=== PATIENT | female | born 2000 | race Caucasian/White ===

== ENCOUNTER 2021-10-29 13:31 | Emergency (ER) | payer OTHER ==
[~2021-10-29] VITALS: Ht 172.7 cm; Wt 65.4 kg
[2021-10-29] MEDS ORDERED: ONDANSETRON ODT 4 MG TAB.RAPDIS PO ONE (14:30)
[2021-10-29] MEDS ORDERED: IV NORMAL SALINE 1,000ML 1,000 ML IV ONE (15:45)
[2021-10-29] MEDS ORDERED: ONDANSETRON PF 4 MG/2 ML VIAL. IVP ONE (15:45)
--- NOTE | 2021-10-29 15:53 | PHYS DOC ---
Past History Additional Past Medical Histor: SLEEP APNEA (LIZA VIDES APRN) Past Surgical History: No Surgical History (LIZA VIDES APRN) Alcohol Use: None (LIZA VIDES APRN) General Adult EDM: Chief Complaint: NAUSEA/VOMITING/DIARRHEA HPI: HPI: Patient is a 21-year-old female who presents to the emergency department for chronic nausea, vomiting, diarrhea for 10 years. She is also reporting umbilical abdominal pain. Patient reports that she has had decreased appetite. She reports vomiting 2 times today. No diarrhea today. She believes that the nausea and vomiting is associated with her anxiety and depression. She does take anxiety and depression medications but has discontinued her hydroxyzine because she stated that that caused her to not eat at all. Patient does not have a primary care provider. Patient does have a history of suicidal ideation but is not currently suicidal and she [facility]. Patient denies any blood in her vomit, fevers, cough, shortness of breath, loss of taste or smell, sick exposures, recent travel. (LIZA VIDES APRN) Review of Systems: Review of Systems: Constitutional: negative unless reported in HPI Eyes: negative unless reported in HPI HENT: negative unless reported in HPI Respiratory: negative unless reported in HPI Cardiovascular: negative unless reported in HPI GI: negative unless reported in HPI : negative unless reported in HPI Musculoskeletal: negative unless reported in HPI Integument: negative unless reported in HPI Neurologic: negative unless reported in HPI Endocrine: negative unless reported in HPI Lymphatic: negative unless reported in HPI Psychiatric: negative unless reported in HPI (LIZA VIDES APRN) Current Medications: Current Meds: Current Medications Medications (Trade) Dose Ordered Sig/Regine Start Time Stop Time Status Last Admin Dose Admin Ondansetron HCl (Zofran Odt) 4 mg 1X ONCE 10/29/21 14:30 10/29/21 15:36 DC Ondansetron HCl (Zofran) 4 mg 1X ONCE 10/29/21 15:45 10/29/21 15:46 UNV Sodium Chloride 1,000 ml @ 1,000 mls/hr 1X ONCE 10/29/21 15:45 10/29/21 16:44 UNV (LIZA VIDES APRN) Allergies: Allergies: Allergies Coded Allergies Type Severity Reaction Last Updated Verified No Known Drug Allergies 10/29/21 No (LIZA VIDES APRN) Physical Exam: PE: Constitutional: Well developed, well nourished, no acute distress, non-toxic appearance. [] HENT: Normocephalic, atraumatic, bilateral external ears normal, oropharynx moist, no oral exudates, nose normal. [] Eyes: PERRL, EOMI, conjunctiva normal, no discharge. [] Neck: Normal range of motion, no tenderness, supple, no stridor. [] Cardiovascular:Heart rate tachycardic rhythm, no murmur [] Lungs & Thorax: Bilateral breath sounds clear to auscultation [] Abdomen: Bowel sounds normal, soft, umbilical abdominal tenderness with palpation, no abdominal rigidity or guarding, negative Carbajal sign, no masses, no pulsatile masses. [] Skin: Warm, dry, no erythema, no rash. [] Back: No tenderness, no CVA tenderness. [] Extremities: No tenderness, no cyanosis, no clubbing, ROM intact, no edema. [] Neurologic: Alert and oriented X 3, normal motor function, normal sensory function, no focal deficits noted. [] Psychologic: Affect normal, judgement normal, mood normal. [] (LIZA VIDES APRN) Current Patient Data: Labs: Laboratory Tests Test 10/29/21 15:49 10/29/21 16:05 10/29/21 16:17 10/29/21 16:19 Urine Collection Type Clean catch Urine Color Yellow Urine Clarity Clear Urine pH 5.5 Urine Specific [place] >=1.030 Urine Protein Neg Urine Glucose (UA) Neg mg/dL Urine Ketones (Stick) 15 mg/dL Urine Blood Mod Urine Nitrite Neg Urine Bilirubin Neg Urine Urobilinogen Dipstick 0.2 mg/dL Urine Leukocyte Esterase Neg Urine RBC 3-5 /HPF Urine WBC 0 /HPF Urine Squamous Epithelial Cells Many /LPF Urine Bacteria 0 /HPF Influenza Type A (Rapid) Negative Influenza Type B (Rapid) Negative SARS-CoV-2 Antigen (Rapid) Negative Bedside Urine HCG, Qualitative hcg negative White Blood Count 6.1 x10^3/uL Red Blood Count 4.12 x10^6/uL Hemoglobin 12.0 g/dL Hematocrit 36.2 % Mean Corpuscular Volume 88 fL Mean Corpuscular Hemoglobin 29 pg Mean Corpuscular Hemoglobin Concent 33 g/dL Red Cell Distribution Width 14.9 % Platelet Count 163 x10^3/uL Neutrophils (%) (Auto) 75 % Lymphocytes (%) (Auto) 19 % Monocytes (%) (Auto) 6 % Eosinophils (%) (Auto) 0 % Basophils (%) (Auto) 0 % Neutrophils # (Auto) 4.6 x10^3uL Lymphocytes # (Auto) 1.2 x10^3/uL Monocytes # (Auto) 0.4 x10^3/uL Eosinophils # (Auto) 0.0 x10^3/uL Basophils # (Auto) 0.0 x10^3/uL Sodium Level 136 mmol/L Potassium Level 3.5 mmol/L Chloride Level 103 mmol/L Carbon Dioxide Level 24 mmol/L Anion Gap 9 Blood Urea Nitrogen 12 mg/dL Creatinine 0.8 mg/dL Estimated GFR (Cockcroft-Gault) 88.9 BUN/Creatinine Ratio 15 Glucose Level 89 mg/dL Calcium Level 8.4 mg/dL Total Bilirubin 0.5 mg/dL Aspartate Amino Transf (AST/SGOT) 23 U/L Alanine Aminotransferase (ALT/SGPT) 27 U/L Alkaline Phosphatase 73 U/L Total Protein 7.1 g/dL Albumin 3.8 g/dL Albumin/Globulin Ratio 1.2 Lipase 50 U/L Current Medications Medications (Trade) Dose Ordered Sig/Regine Route PRN Reason Start Time Stop Time Status Last Admin Dose Admin Ondansetron HCl (Zofran Odt) 4 mg 1X ONCE PO 10/29/21 14:30 10/29/21 15:36 DC Sodium Chloride 1,000 ml @ 1,000 mls/hr 1X ONCE IV 10/29/21 15:45 10/29/21 16:44 DC 10/29/21 16:02 Ondansetron HCl (Zofran) 4 mg 1X ONCE IVP 10/29/21 15:45 10/29/21 15:50 DC 10/29/21 16:04 Iohexol (Omnipaque 300 Mg/ml) 75 ml 1X ONCE IV 10/29/21 16:00 10/29/21 16:24 DC 10/29/21 16:36 Info (Do NOT chart on this entry -- for MONITORING) 1 each PRN DAILY PRN MC SEE COMMENTS 10/29/21 16:30 10/31/21 16:29 Vital Signs: Vital Signs Date Time Temp Pulse Resp B/P (MAP) Pulse Ox O2 Delivery O2 Flow Rate FiO2 10/29/21 15:22 98.2 107 18 119/66 (83) 100 Room Air (LIZA VIDES APRN) EKG: EKG: [] (LIZA VIDES APRN) Radiology/Procedures: Radiology/Procedures: []PROCEDURE: CT ABD PELV W/ IV CONTRST ONLY CT ABDOMEN+PELVIS W History: Reason: abdominal pain, n/v/d / Spl. Instructions: / History: Technique: After the administration of intravenous contrast, CT imaging was performed of the abdomen and pelvis. Multiplanar images are reviewed. Exposure: One or more of the following individualized dose reduction techniques were utilized for this examination: 1. Automated exposure control 2. Adjustment of the mA and/or kV according to patient size 3. Use of iterative reconstruction technique. Comparison: None Findings: Lower chest: No consolidation or pleural effusion. Abdomen and pelvis: The liver, spleen, adrenal glands, pancreas and gallbladder are unremarkable. No biliary ductal dilatation. No renal calculus. No hydronephrosis. Normal appearance of the urinary bladder. Decompressed regions of the mid to distal colon. Normal appendix. No evidence of bowel obstruction. No pathologic lymphadenopathy. No ascites. IUD noted within the upper endometrial canal. Bones: No pathologic osseous lesions. Impression: 1. No acute abdominal or pelvic pathology. Electronically signed by: Palmer Gamino DO (10/29/2021 4:52 PM) [facility] DICTATED AND SIGNED BY: PALMER GAMINO DO DATE: 10/29/21 1643 CC: LIZA VIDES APRN; PCP,NO ~MTH0 0 (LIZA VIDES APRN) Heart Score: C/O Chest Pain: N/A Risk Factors: Risk Factors: DM, Current or recent (<one month) smoker, HTN, HLP, family history of CAD, obesity. Risk Scores: Score 0 - 3: 2.5% MACE over next 6 weeks - Discharge Home Score 4 - 6: 20.3% MACE over next 6 weeks - Admit for Clinical Observation Score 7 - 10: 72.7% MACE over next 6 weeks - Early Invasive Strategies (LIZA VIDES APRN) Course & Med Decision Making: Course & Med Decision Making Pertinent Labs and Imaging studies reviewed. (See chart for details) Patient presents to the emergency department for chronic nausea, vomiting, diarrhea as well as local abdominal pain. Patient has a history of anxiety and depression and believes that these symptoms are linked with her anxiety and depression. She does not have a primary care provider. Work-up in the ER consisted of blood work, urinalysis, CT imaging of abdomen and pelvis. She also had Covid and influenza testing. Patient is mildly tachycardic and this was treated with IV fluids. She was also treated with nausea medication. Patient had no active vomiting while in the emergency department. Her blood work and urinalysis were unremarkable. CT scan of abdomen and pelvis did not show any acute findings. Her Covid and influenza test was negative. She was evaluated by member of the psychiatric assessment team due to her previous thoughts of suicide with her anxiety and depression. She was given resources and a safety plan was developed. Patient was also provided information for a primary care provider in clinic so that she can follow-up with them about her chronic nausea and vomiting. She will be discharged home with nausea medication. I discussed with patient all findings and diagnostic testing as well as the need to follow-up with PCP for further evaluation and treatment or return to the ER if any new or worsening symptoms. Strict return precautions were also discussed at length. Patient voiced understanding and agreement with the plan. Patient is hemodynamically stable at the time of disposition. (LIZA VIDES APRN) Dragon Disclaimer: Dragon Disclaimer: This electronic medical record was generated, in whole or in part, using a voice recognition dictation system. (LIZA VIDES APRN) Attending Co-Sign The patient was seen and interviewed as well as examined at the bedside. The chart was reviewed. The case was discussed. Agree with the plan of care. (MAGY BRASWELL DO) Departure Departure: Impression: Primary Impression: Nausea & vomiting Qualified Codes: R11.2 - Nausea with vomiting, unspecified Additional Impression: Anxiety Disposition: 01 HOME / SELF CARE / HOMELESS Condition: GOOD Referrals: PCP,NO (PCP) Patient Instructions: Nausea and Vomiting, Suicidal Feelings, How to Help Yourself Additional Instructions: You were seen in the emergency department today for chronic nausea, vomiting, diarrhea and abdominal pain. Your blood work, urinalysis and imaging of your abdomen showed no acute findings. Your influenza and Covid test was negative. It is likely that the symptoms are associated with your anxiety and depression. Please continue to take your medications as prescribed. You were evaluated by member of our psychiatric assessment team and you were given resources and a safety plan was developed. Please refer to these outpatient services if you have any thoughts of wanting to harm yourself. You are being discharged home with nausea medication you can take this as needed. Increase your fluids and rest. Avoid eating any spicy, greasy or fatty foods over the next 48 hours. We recommend a brat diet which includes bananas, rice, applesauce and toast. If you do not have a primary care provider, you can follow-up with one of the providers given to you today. I would contact them on Sunday to set up a follow-up visit. Return to the emergency department if you develop worsening of your abdominal pain, intractable nausea or vomiting, blood in your stools or vomit, high fevers refractory to treatment, suicidal or homicidal ideation. Scripts Ondansetron (ONDANSETRON ODT) 4 Mg Tab.rapdis 1 TAB PO PRN Q6-8HRS for nausea for 7 Days, #28 TAB 0 Refills Prov: LIZA VIDES APRN 10/29/21 LIZA VIDES APRN Oct 29, 2021 15:53 MAGY BRASWELL DO Oct 30, 2021 06:46
[2021-10-29] MEDS ORDERED: IOHEXOL 300 MG/ML 75 ML VIAL. IV ONE (16:00)
[2021-10-29 16:29] LABS: BASO % 0 % (0-3); EOS % 0 % (0-3); HEMATOCRIT 36.2 % (36.0-47.0); LYMPH # 1.2 x10^3/uL (1.0-4.8); LYMPH % 19 % (24-48); MEAN CORPUSCULAR HEMOGLOBIN 29 pg (25-35); MEAN CORPUSCULAR HGB CONC 33 g/dL (31-37); MEAN CORPUSCULAR VOLUME 88 fL (79-100); MONO # 0.4 x10^3/uL (0.0-1.1); MONO % 6 % (0-9); NEUT # 4.6 x10^3uL (1.8-7.7); NEUT % 75 % (31-73); PLATELET COUNT 163 x10^3/uL (140-400); RED BLOOD COUNT 4.12 x10^6/uL (3.50-5.40); RED CELL DISTRIBUTION WIDTH 14.9 % (11.5-14.5); WHITE BLOOD COUNT 6.1 x10^3/uL (4.0-11.0)
[2021-10-29] MEDS ORDERED: CONTRAST GIVEN. MC PRN (16:30)
[2021-10-29 16:36] LABS: CALCIUM 8.4 mg/dL (8.5-10.1); CREATININE 0.8 mg/dL (0.6-1.0); GFR 88.9; POTASSIUM 3.5 mmol/L (3.5-5.1)
[2021-10-29 16:41] LABS: BACTERIA,URINE 0 /HPF (0-FEW); BILIRUBIN,URINE NEG (NEG); CLARITY,URINE CLEAR; COLOR,URINE YELLOW; GLUCOSE,URINE NEG (NEG); NITRITE,URINE NEG (NEG); SQUAMOUS EPITHELIAL CELL,UR MANY /LPF; UROBILINOGEN,URINE 0.2 mg/dL (0.2 mg/dL); WBC,URINE 0 /HPF (0-4)
[2021-10-29 16:41] LABS: ALBUMIN 3.8 g/dL (3.4-5.0); ALBUMIN/GLOBULIN RATIO 1.2 (1.0-1.7); TOTAL BILIRUBIN 0.5 mg/dL (0.2-1.0); TOTAL PROTEIN 7.1 g/dL (6.4-8.2)
[2021-10-29 16:45] LABS: INFLUENZA A PATIENT NEGATIVE (NEGATIVE); INFLUENZA B PATIENT NEGATIVE (NEGATIVE)
--- NOTE | 2021-10-29 16:55 | RAD ---
CT ABDOMEN+PELVIS W History: Reason: abdominal pain, n/v/d / Spl. Instructions: / History: Technique: After the administration of intravenous contrast, CT imaging was performed of the abdomen and pelvis. Multiplanar images are reviewed. Exposure: One or more of the following individualized dose reduction techniques were utilized for thi s examination: 1. Automated exposure control 2. Adjustment of the mA and/or kV according to patient size 3. Use of iterative reconstruction technique. Comparison: None Findings: Lower chest: No consolidation or pleural effusion. Abdomen and pelvis: The liver, spleen, adrenal glands, pancreas and gallbladder are unremarkable. No biliary ductal dilatation. No renal calculus. No hydronephrosis. Normal appearance of the urinary bladder. Decompressed regions of the mid to distal colon. Normal appendix. No evidence of bowel obstruction. N o pathologic lymphadenopathy. No ascites. IUD noted within the upper endometrial canal. Bones: No pathologic osseous lesions. Impression: 1. No acute abdominal or pelvic pathology. Electronically signed by: Palmer Otto DO (10/29/2021 4:52 PM) [facility]
[2021-10-29] MEDS ORDERED: ONDA4TAB12 PO (17:32)
[2021-10-29 18:24] VITALS: BP 121/71
== END 2021-10-29 18:27 | disposition home or self-care (01) ==
LOC: ER 13:31
DX: F41.9 Anxiety disorder, unspecified (principal); R11.2 Nausea with vomiting, unspecified; R19.7 Diarrhea, unspecified; R10.33 Periumbilical pain; Z20.822 Contact with and (suspected) exposure to COVID-19
CPT/HCPCS: 36415; 74177; 80053; 81001; 81025; 83690; 85025; 87428; 96361; 96374; 99285; J2405; J7030; Q9967